=== PATIENT | male | born 1960 | race Caucasian/White ===

== ENCOUNTER 2021-04-01 22:45 | Emergency (ER) | payer MEDICAID ==
[~2021-04-01] VITALS: Ht 177.8 cm; Wt 97.7 kg
[2021-04-01 23:45] VITALS: BP 110/68
[2021-04-02 00:10] LABS: BASOPHILS # (AUTO) 0.1 X10'3 (0-0.2); BASOPHILS % (AUTO) 1.1 % (0-1); EOSINOPHILS # (AUTO) 0.1 X10'3 (0-0.9); EOSINOPHILS % (AUTO) 0.8 % (0-6); HEMATOCRIT 49.7 % (42.0-52.0); HEMOGLOBIN 17.1 g/dl (14.0-17.9); LYMPHOCYTES % (AUTO) 11.3 % (21-51); MEAN CORPUSCULAR HEMOGLOBIN 31.7 PG (27.0-31.0); MEAN CORPUSCULAR HGB CONC 34.4 g/dL (33.0-36.5); MEAN CORPUSCULAR VOLUME 92.2 FL (78-98); MEAN PLATELET VOLUME 8.2 FL (7.4-10.4); MONOCYTES # (AUTO) 1.1 X10'3 (0-0.9); MONOCYTES % (AUTO) 12.3 % (2-12); NEUTROPHILS # (AUTO) 6.9 X10'3 (1.8-7.7); NEUTROPHILS % (AUTO) 74.5 % (42-75); PLATELET COUNT 375 X10'3 (140-440); WHITE BLOOD COUNT 9.3 X10'3 (4.5-11.0)
[2021-04-02 00:26] LABS: ALANINE AMINOTRANSFERASE 52 U/L (12-78); ALBUMIN 4.1 G/DL (3.4-5.0); ALBUMIN/GLOBULIN RATIO 0.9 (1.1-1.5); ALKALINE PHOSPHATASE 105 IU/L (46-116); ANION GAP 16 (8-16); ASPARTATE AMINO TRANSFERASE 36 U/L (10-37); BILIRUBIN,TOTAL 0.5 MG/DL (0.1-1.0); BLOOD UREA NITROGEN 22 MG/DL (7-18); BUN/CREATININE RATIO 11.4 (5.4-32.0); CALCIUM 9.4 MG/DL (8.5-10.1); CHLORIDE 101 MMOL/L (99-107); CREATININE 1.93 MG/DL (0.60-1.10); GLUCOSE 104 MG/DL (70-104); POTASSIUM 4.1 MMOL/L (3.5-5.1); SODIUM 139 MMOL/L (135-145); TOTAL CARBON DIOXIDE 21.7 MMOL/L (24-32); TOTAL PROTEIN 8.7 G/DL (6.4-8.2); eGFR 36 ML/MIN
[2021-04-02] MEDS ORDERED: normal saline 1000ML IV soln IVB ONE (01:55)
[2021-04-02 02:28] LABS: ETHANOL 0.062 GM/DL (0.0-0.010)
[2021-04-02] MEDS ORDERED: OLANZapine 2.5MG tablet PO STA (02:57)
[2021-04-02] MEDS ORDERED: mirtazapine 15mg tablet PO STA (02:57)
[2021-04-02] MEDS ORDERED: quetiapine 100mg tablet PO STA (02:57)
[2021-04-02] MEDS ORDERED: OLAN5TAB3 PO (03:02)
[2021-04-02] MEDS ORDERED: MIRT-116 PO (03:02)
[2021-04-02] MEDS ORDERED: QUET50TA PO (03:02)
--- NOTE | 2021-04-02 04:24 | NUR ---
PT SHOWS NO S/S OF DISTRESS, RESTING W/O COMPLAINT
== END 2021-04-02 10:42 | disposition home or self-care (01) ==
LOC: ER 22:45
DX: F31.9 Bipolar disorder, unspecified (principal); F20.9 Schizophrenia, unspecified; F17.200 Nicotine dependence, unspecified, uncomplicated; Z72.89 Other problems related to lifestyle; Z59.0 Homelessness; Z79.899 Other long term (current) drug therapy
CPT/HCPCS: 36415; 71045; 80053; 80320; 83880; 84443; 84484; 85025; 93005; 99285; J7030